=== PATIENT | male | born 1990 | race Two or more races ===

== ENCOUNTER 2023-01-02 12:34 | Emergency (ER) | payer MEDICAID ==
[~2023-01-02] VITALS: Ht 182.9 cm; Wt 185.0 kg
[2023-01-02] MEDS ORDERED: SODIUM BICARBONATE 8.4 % INJ 50ML VIAL IV ONE ×2 (13:15→15:25)
[2023-01-02] MEDS ORDERED: CALCIUM CHL 100MG/ML 500 MG in D5W 5% 100 ML IV ONE (13:15)
[2023-01-02 13:20] VITALS: PULSE 110; RESP 18
[2023-01-02] MEDS ORDERED: CALCIUM GLUC 1,000mg/50ml-NS 50 ML IV ONE (13:30)
[2023-01-02 13:59] LABS: Basophils # (auto) 0 10 ^3/uL (0-0.2); Basophils % (auto) 0.5 % (0.0-2.0); Eosinophils # (auto) 0.2 10 ^3/uL (0-0.8); Eosinophils % (auto) 2.4 % (0.0-7.0); Hematocrit 40.4 % (41.0-53.0); Lymphocytes # (auto) 0.7 10 ^3/uL (0.4-5.4); Lymphocytes % (auto) 10.1 % (10.0-50.0); Mean Corpuscular Hemoglobin 26.9 pg (28.0-32.0); Mean Corpuscular Hgb Conc. 32.3 g/dL (32.0-36.0); Mean Corpuscular Volume 83.3 fL (80.0-100.0); Monocytes # (auto) 0.7 10 ^3/uL (0-1.3); Monocytes % (auto) 9.6 % (0.0-12.0); Neutrophils # (auto) 5.3 10 ^3/uL (1.6-8.6); Neutrophils % (auto) 77.4 % (37.0-80.0); Nucleated Red Blood Cells % 0.2 %; Red Blood Cells 4.85 10^6/uL (4.5-5.90); Red Cell Distribution Width 17.9 % (11.8-14.3); White Blood Cell 6.8 10^3/uL (4.4-10.8)
[2023-01-02 14:12] LABS: INR 1.03 (0.9-1.15); Partial Thromboplastin Time 50.4 SEC (24.5-34.5)
[2023-01-02 14:13] LABS: Albumin 2.3 g/dL (3.4-5.0); Calcium 8.3 mg/dL (8.5-10.1); Magnesium 2.7 mg/dL (1.6-2.6)
[2023-01-02] MEDS ORDERED: ETOMIDATE (2MG/ML) 20ML VIAL IV ONE (14:13)
[2023-01-02] MEDS ORDERED: ROCURONIUM 10MG/ML 10ML VIAL IV ONE (14:13)
[2023-01-02 14:16] LABS: BUN/Creatinine Ratio 10.9 (10.0-20.0); Bilirubin, Total 1.7 mg/dL (0.2-1.0); Total Protein 6.6 g/dL (6.4-8.2)
[2023-01-02] MEDS ORDERED: NOREPINEPHRINE 8 MG/250ML KIT 250 ML IV SCH (14:30)
[2023-01-02] MEDS ORDERED: AMIODARONE HCL 150 MG in D5W 5% 100 ML IV ONE (14:30)
[2023-01-02] MEDS ORDERED: PROPOFOL 100 ML IV SCH (14:30)
[2023-01-02 14:34] LABS: Potassium 8.9 mmol/L (3.5-5.1)
[2023-01-02] MEDS ORDERED: PROPOFOL 100 ML IV ONE (14:34)
[2023-01-02] MEDS ORDERED: NOREPINEPHRINE 8 MG/250ML KIT 250 ML IV ONE (14:34)
[2023-01-02] MEDS ORDERED: AMIODARONE HCL (50 MG/ ML) 3 ML VIAL IV ONE (14:37)
[2023-01-02 14:45] VITALS: PULSE 97
[2023-01-02] MEDS ORDERED: AMIODARONE 450mg/250ml AE 250 ML IV SCH ×2 (14:45→20:45)
[2023-01-02 15:00] VITALS: RESP 16; O2SAT 97
[2023-01-02] MEDS ORDERED: AMIODARONE 450mg/250ml AE 250 ML IV ONE (15:00)
[2023-01-02 15:06] VITALS: BP 92/35
[2023-01-02] MEDS ORDERED: InsuLIN REG 1unit/0.01ml Soln (100units/ml) ONE (15:33)
[2023-01-02] MEDS ORDERED: SODIUM BICARBONATE 8.4% INJ 50ML SYRINGE ONE (15:34)
== END 2023-01-02 22:38 ==
LOC: EDBD 12:34 → ER 12:34
DX: I21.3 ST elevation (STEMI) myocardial infarction of unspecified site (principal); E87.5 Hyperkalemia; N17.9 Acute kidney failure, unspecified; E87.20 Acidosis, unspecified; I46.9 Cardiac arrest, cause unspecified; I10 Essential (primary) hypertension
CPT/HCPCS: 31500; 36415; 36556; 36600; 71045; 80053; 82550; 82805; 83735; 83880; 84484; 85025; 85610; 85730; 92950; 93005; 99291; 99292; C1769; J0282; J0610; J1815; J2704; 94002; J7060